=== PATIENT | male | born 1960 | race Two or more races ===

== ENCOUNTER 2018-08-12 07:01 | Emergency (ER) | payer OTHER ==
[~2018-08-12] VITALS: Ht 172.7 cm; Wt 74.4 kg
== END 2018-08-12 14:54 | disposition home or self-care (01) ==
LOC: ER 07:01
DX: S81.821A Laceration with foreign body, right lower leg, initial encounter (principal); W45.8XXA Other foreign body or object entering through skin, initial encounter; Y93.89 Activity, other specified; Y92.89 Other specified places as the place of occurrence of the external cause; Y99.8 Other external cause status

== ENCOUNTER 2019-08-07 10:53 | Emergency (ER) | payer OTHER ==
[~2019-08-07] VITALS: Ht 172.7 cm; Wt 75.7 kg
== END 2019-08-07 12:34 | disposition home or self-care (01) ==
LOC: ER 10:53
DX: S61.210A Laceration without foreign body of right index finger without damage to nail, initial encounter (principal); W25.XXXA Contact with sharp glass, initial encounter

== ENCOUNTER 2024-01-25 07:03 | Emergency (ER) | payer OTHER ==
[~2024-01-25] VITALS: Ht 170.2 cm; Wt 76.2 kg
[2024-01-25] MEDS ORDERED: CEFTRIAXONE SODIUM 1,000 MG VIAL IM STA (08:41)
[2024-01-25] MEDS ORDERED: IBUprofen 100 MG/5 ML-120ML ML PO STA (08:42)
[2024-01-25] MEDS ORDERED: CEFTRIAXONE SODIUM 1,000 MG VIAL ONE (08:52)
[2024-01-25] MEDS ORDERED: IBUprofen 20 MG/ML BLIST.PACK (5ML) PO ONE (08:52)
[2024-01-25 08:55] LABS: HEMATOCRIT 46.7 % (39.0-48.0); HEMOGLOBIN 16.5 g/dL (13-16.00); MEAN CELL VOLUME 95.8 fL (80.0-100.00); MEAN CORPUSCULAR HEMOGLOBIN 33.8 pg (27.00-32.0); MEAN CORPUSCULAR HGB CONC 35.3 g/dl (32.0-36.0); PLATELET COUNT 218 K/uL (150-450); RED BLOOD COUNT 4.87 M/uL (4.00-6.00); RED CELL DISTRIBUTION WIDTH 13.9 % (11.5-14.5)
== END 2024-01-25 09:07 | disposition home or self-care (01) ==
LOC: ER 07:04
PROVIDERS: General Practice
DX: J03.90 Acute tonsillitis, unspecified (principal); Z88.6 Allergy status to analgesic agent